=== PATIENT | female | born 1985 | race Caucasian/White ===

== ENCOUNTER → 2021-04-22 08:25 | Outpatient (CLI) | payer BC, SELFPAY ==
--- NOTE | ~2021-04-22 | US_ITS ---
US OB <= 14 weeks fetus DATE: 04/22/2021 08:50 INDICATION: gestational age determination. History of miscarriage. TECHNIQUE: Real-time imaging and Doppler analysis COMPARISON: None FINDINGS: The uterus measures approximately 12 cm vertical dimension, 7.5 cm AP and 8.4 cm transverse dimension. A live oseguera intrauterine gestation is identified with heart rate 163 bpm There is an approximately 6 x 11 mm hypoechoic area subjacent to the gestational sac which may repres ent a small subchorionic hematoma. [place] rump length averages 1.62 cm consistent with 8 weeks +/- 5 days estimated gestational age; MAJO : 12/02/2021. The right ovary appears normal. Left ovary is not visualized. No pelvic free fluid collection is dete cted. IMPRESSION: Small subchorionic hematoma is suggested Estimated gestational age of 8 weeks +/- 5 days; MAJO: 12/02/2021 Reviewed, dictated and finalized at Location A. Reviewed, dictated and finalized at location A.
== END ==
PROVIDERS: Visit Provider Obstetrics & Gynecology Gynecology
DX: O26.21 Pregnancy care for patient with recurrent pregnancy loss, first trimester (principal); Z3A.08 8 weeks gestation of pregnancy
CPT/HCPCS: 76801

== ENCOUNTER → 2021-05-25 15:56 | Outpatient (CLI) | payer BC, SELFPAY ==
--- NOTE | ~2021-05-25 | US_ITS ---
EXAMINATION: US OB <= 14 weeks fetus DATE: 05/25/2021 16:16 INDICATION: Follow-up subchorionic hematoma. Abnormalities of heart rate or rhythm. TECHNIQUE: Real-time pelvic ultrasound utilizing both a transvaginal and transabdominal probe was pe rformed. The interpreting radiologist was not present for the study. COMPARISON: 04/22/2021 FINDINGS: The uterus measures 17.0 x 9.2 x 11.4 cm. There is an intrauterine gestational sac with a single loree ing fetus. The crown rump length measures 6.9 cm, which correlates with an estimated gestational age of 13 weeks and 1 days. heart motion is identified measuring 167 beats per minute (bpm) by M-mo de Doppler. Previously seen subchorionic hematomas no longer visualized. The ovaries are not visualized. There is no free fluid in the pelvis. IMPRESSION: 1. Single living fetus with heart rate of 167 bpm. 2. Resolution of previously seen subchorionic hematoma. 3. [place]-rump length of 6.9 cm concordant with prior estimated gestational age of 12 weeks and 5 days with ultrasound estimated date of delivery (MAJO) based on prior ultrasound of 12/02/2021. Reviewed, dictated and finalized at location B. IMPRESSION: 1. Single living fetus with heart rate of 167 bpm. 2. Resolution of previously seen subchorionic hematoma. 3. [place]-rump length of 6.9 cm concordant with prior estimated gestational age of 12 weeks and 5 days with ultrasound estimated date of delivery (MAJO) based o n prior ultrasound of 12/02/2021.
== END ==
PROVIDERS: Visit Provider Obstetrics & Gynecology
DX: O36.8910 Maternal care for other specified fetal problems, first trimester, not applicable or unspecified (principal); Z3A.12 12 weeks gestation of pregnancy
CPT/HCPCS: 76801

== ENCOUNTER 2021-09-12 16:02 | Outpatient (RCR) | payer BC, SELFPAY ==
[2021-09-12 16:26] LABS: Hematocrit 34.3 % (37.0-47.0); Hemoglobin 12.2 g/dL (12.0-15.0)
[2021-09-12 17:17] LABS: HIV 1/2 Ab P24 Ag Result Negative (Negative)
[2021-09-12 17:26] LABS: Free T4 Free Thyroxine 0.86 ng/mL (0.78-2.19); Vitamin D 25 Hydroxy 53.2 ng/mL
[2021-09-13] MEDS: RHO(D) IMMUNE GLOBULIN 300 MCG/2 ML SYRINGE IM (16:07)
== END 2021-12-11 23:59 | disposition home or self-care (01) ==
LOC: ANHLAB 16:02
PROVIDERS: Visit Provider Nurse Practitioner
DX: Z11.4 Encounter for screening for human immunodeficiency virus [HIV] (principal); Z29.13 Encounter for prophylactic Rho(D) immune globulin; O36.0190 Maternal care for anti-D [Rh] antibodies, unspecified trimester, not applicable or unspecified; Z3A.00 Weeks of gestation of pregnancy not specified
CPT/HCPCS: 36415; 82306; 84439; 84443; 85014; 85018; 85461; 86703; 90384; 96372; G0432; J2790

== ENCOUNTER 2021-11-25 05:15 | Inpatient (IN) | payer BC, SELFPAY ==
[2021-11-25] VITALS (22 sets, daily range): BP systolic 100–148; BP diastolic 63–119; PULSE 49–81; RESP 16–18; TEMP 36.6–37.7; O2SAT 100
--- NOTE | 2021-11-25 05:15 | LDADM ---
This patient, Rita Delgado, was admitted to Labor/Delivery/Recovery 107 on 11/25/21 at 05:15. Plans for labor, pain management and were discussed with patient. Patient/family oriented to hospital policies and general routines including ID bracelet, bed and alarms, visiting hours, pain management, procedures, bathroom and other care routines, personal items, smoking policy, room service/diet and guest tray routines, security routines, and visiting hours. Patient/Family are encouraged to report perceived risks to care and to ask questions if they do not understand what they are told or what they should do. See OBIX for further documentation.
[2021-11-25] MEDS: LACTATED RINGERS 1,000 ML 125 ML IV CONT (06:39)
[2021-11-25] MEDS: AMPICILLIN 2 GM/NS 100 ML 2 GM/100 ML BAG IVPB (06:40)
[2021-11-25] MEDS: OXYTOCIN 30 UNITS/NS 500 ML 30 UNITS/500 ML BAG IV CONT (06:40)
[2021-11-25 06:46] LABS: Basophils Percent Auto 0.4 % (0.2-1.2); Eosinophils Percent Auto 0.2 % (0-4.4); Hemoglobin 13.5 g/dL (12.0-15.0); Immature Granulocyte Absolute 0.07 K/mm3 (0.00-0.031); Immature Granulocyte Percent A 0.7 % (0-0.5); Lymphocytes Absolute Auto 1.55 K/mm3 (0.9-3.2); Lymphocytes Percent Auto 16.1 % (18.3-44.2); Mean Corpuscular HGB Conc 35.5 g/dl (32-36); Mean Corpuscular Volume 95.7 fl (80-100); Mean Platelet Volume 10.8 fl (7.4-10.4); Monocytes Absolute Auto 0.5 K/mm3 (0.1-0.6); Monocytes Percent Auto 5.6 % (2.6-8.5); Neutrophils Absolute Auto 7.4 K/mm3 (1.3-6.7); Platelet Count Result 183 k/mm3 (150-375); Red Blood Count 3.97 M/mm3 (4.2-5.4); Red Cell Distribution Width 12.3 % (11.5-14.5); White Blood Count 9.6 K/mm3 (4.5-10.0)
--- NOTE | 2021-11-25 08:22 | WPDOBADMIT ---
Obstetrics - Admit Note Admission Note: record reviewed. No pertinent additions to the history and/or any subsequent changes in the physical findings that are not consistent with the expected course of the were found. Additions to the history and/or subsequent changes in the physical findings follow. Here for MIL at 39 wks. Cervix 3-4/50/-2 AROM with clear fluid. FHTs reactive. Continue pitocin.
--- NOTE | 2021-11-25 10:56 | P.PCNOB_ITS ---
OB - Delivery Note Procedure Delivery date: 11/25/21 Procedure: Induction method: AROM and Per Pitocin Protocol Delivery monitor: External FHT and External Uterine Route of delivery: Laceration Description: Perineal - 2nd Degree Delivery repair: vicryl (3-0) Specimen: No Quantitative Blood Loss (ml): 150 Anesthesia type: Local Disposition: floor [place] Baby Date of : 11/25/21 Weeks of gestation at delivery: 39 Infant gender: Female Weight (pounds): 8 Weight (ounces): 6 presentation: vertex position: Right Occiput Anterior Placenta delivery description: Spontaneous Cord Vessel Description: 3 Vessels and True Knot score one minute: 9 score five minutes: 9
[2021-11-25] MEDS: OXYTOCIN 30 UNITS/NS 500 ML 30 UNITS/500 ML BAG 125 UNITS IV CONT (10:58)
--- NOTE | 2021-11-25 10:58 | P.DS_ITS ---
DS: Admitting Diagnosis Discharge Date 11/26/21 Admitting Diagnosis MIL at 39 wks DS: Discharge Diagnosis Discharge Diagnosis (1) (normal spontaneous vaginal delivery): Code(s): O80 - Encounter for full-term uncomplicated delivery Status: Acute OB - DS: Summary OB Procedures : Ultrasound OB Procedures Intrapartum: Spontaneous Vag Delivery OB Procedures: : None Peripartum Data Infant Delivery Method: Natural Vaginal Laceration Description: Perineal - 2nd Degree complications: none Status at Discharge Functional status at discharge: independent ambulation Overall status at discharge: patient is progressing back to baseline Time Spent with Patient Time attestation: Total time spent providing and/or coordinating discharge services: DS: Data Data Completed and Pending Labs on day of discharge: Labs from last 24 hours 11/25/21 11/25/21 11/25/21 06:37 06:37 06:37 WBC 9.6 RBC 3.97 L Hgb 13.5 Hct 38.0 MCV 95.7 MCH 34.0 MCHC 35.5 RDW 12.3 Plt Count 183 MPV 10.8 H Immature Gran % (Auto) 0.7 H Neut % (Auto) 77.0 H Lymph % (Auto) 16.1 L [place] % (Auto) 5.6 Eos % (Auto) 0.2 Baso % (Auto) 0.4 Lymph # (Auto) 1.55 [place] # (Auto) 0.5 Eos # (Auto) 0.0 Baso # (Auto) 0.0 Abs Immat Gran (auto) 0.07 H Absolute Neuts (auto) 7.4 H Absolute Nucleated RBC 0.0 Nucleated RBC % 0.0 RPR Pending Blood Type A Negative Antibody Screen Positive Antibody Identification Passive Due to RH Imm Glob Antigen Identification TNP VINOD, IgG Interpret Not Performed VINOD, Poly Interpret Neg VINOD, Complement Interp Not Performed Discharge Plan Discharge Attending physician on discharge: Celia Renee Discharging Clinician: Celia Renee Anticipated Discharge Date/Time: 11/27/21 10:59 Patient Disposition: Home, Self-Care Activity: may shower and pelvic rest Diet: regular Patient Instructions: Antibiotic Form Stand Alone Forms: General Discharge Information Follow-up/Referrals: Celia Renee MD [Physician] - 6 Weeks Discharge Medications: Continued ergocalciferol (vitamin D2) [Vitamin D2] 1,250 mcg (50,000 unit) Capsule 1,250 mcg PO WEEKLY RF: 0 PNV cmb#95-ferrous fumarate-FA [] 28 mg iron- 800 mcg Tablet 1 tablet PO DAILY RF: 0 Date of admission: 11/25/21 05:15 Primary Care Provider: PHYSICIAN,MANAGER STATISTICAL PROGRAMMING Admitting Provider: Celia Renee Attending physician on admission: Celia Renee Condition: Stable
[2021-11-25] MEDS: IBUPROFEN 600 MG TABLET PO ×3 (11:24→23:54)
[2021-11-25] MEDS: BENZOCAINE 20% AER SPR (*SP) 56 GM CAN 1 SPRAY TOPICAL ×2 (11:25→18:15)
[2021-11-25] MEDS: WITCH HAZEL 40 PADS 1 PAD TOPICAL ×2 (11:25→18:15)
--- NOTE | 2021-11-25 13:36 | PC.NURSE ---
Patient transferred to post room #286 per wheelchair. Support person present. Oriented to unit, room, information board, rooming in, admission packet and security measures. Patient verbalizes understanding.
[2021-11-25] MEDS: DOCUSATE SODIUM 100 MG CAPSULE PO (18:16)
[2021-11-26 03:30] VITALS: BP 110/73; PULSE 52; RESP 16; TEMP 36.7; O2SAT 100
[2021-11-26 04:08] LABS: Hematocrit 32.3 % (37.0-47.0); Hemoglobin 11.1 g/dL (12.0-15.0)
[2021-11-26 08:00] VITALS: BP 110/56; PULSE 64; RESP 18; TEMP 36.4
[2021-11-26] MEDS: DOCUSATE SODIUM 100 MG CAPSULE PO (08:34)
[2021-11-26] MEDS: IBUPROFEN 600 MG TABLET PO (08:35)
[2021-11-26] MEDS: MULTIVIT/MIN/PREN/FOL AC/IRON TABLET 1 TAB PO (08:36)
--- NOTE | 2021-11-26 09:55 | PM.OBPNVD ---
OB - PN: Subj Subjective Date/time seen: 11/26/21 09:55 Patient comments: no complaints and pain well controlled baby status: doing well OB - PN: Obj Data Labs CBC & Chem 7: 11/26/21 03:38 Labs: Laboratory Results - last 24 hr 11/26/21 03:38 Hgb 11.1 L Hct 32.3 L OB - PN A/P Plan day: 1 Plan: routine care, discharge home and follow up 6 weeks Time Spent With Patient Time: Total time spent is greater than 50% in coordination of care (as documented) at patient's floor/unit and/or counseling patient: Exam : Bimanual exam- vagina & uterus: other (Uterus firm, nt @U)
--- NOTE | 2021-11-26 10:58 | PC.NURSE ---
Self care and infant care discharge instructions given including follow up visit date and time. No questions or concerns verbalized. Respirations even and unlabored. No distress noted.
[2021-11-27 07:48] VITALS: BP 116/72; PULSE 60; RESP 16; TEMP 36.6; O2SAT 100
[2021-11-27 08:03] LABS: Rapid Plasma Reagin Non-Reactive (NonReactive)
== END 2021-11-26 12:32 | disposition home or self-care (01) | DRG 807 ==
LOC: ANHLDR 10:59 → ANHOB2 14:42
PROVIDERS: Admitting Provider Obstetrics & Gynecology Gynecology; Visit Provider Obstetrics & Gynecology Gynecology
DX: O40.3XX0 Polyhydramnios, third trimester, not applicable or unspecified (principal); Z37.0 Single live birth; Z3A.39 39 weeks gestation of pregnancy; O36.8330 Maternal care for abnormalities of the fetal heart rate or rhythm, third trimester, not applicable or unspecified; O99.824 Streptococcus B carrier state complicating childbirth; O70.1 Second degree perineal laceration during delivery; O69.2XX0 Labor and delivery complicated by other cord entanglement, with compression, not applicable or unspecified
CPT/HCPCS: 36415; 85014; 85018; 85025; 86592; 86850; 86880; 86900; 86901; A9270; J0290; J2590; J7120

== ENCOUNTER 2023-12-20 10:48 | Outpatient (CLI) | payer BC, SELFPAY ==
[2023-12-20 11:48] LABS: Basophils Percent Auto 0.3 % (0.2-1.2); Eosinophils Percent Auto 0.3 % (0-4.4); Hemoglobin 13.5 g/dL (12.0-15.0); Immature Granulocyte Absolute 0.03 K/mm3 (0.00-0.031); Immature Granulocyte Percent A 0.3 % (0-0.5); Lymphocytes Absolute Auto 0.91 K/mm3 (0.9-3.2); Lymphocytes Percent Auto 9.9 % (18.3-44.2); Mean Corpuscular HGB Conc 33.8 g/dl (32-36); Mean Corpuscular Volume 91.7 fl (80-100); Monocytes Absolute Auto 0.4 K/mm3 (0.1-0.6); Neutrophils Absolute Auto 7.8 K/mm3 (1.3-6.7); Neutrophils Percent Auto 85.2 % (45.5-73.1); Platelet Count Result 265 k/mm3 (150-375); Red Blood Count 4.36 M/mm3 (4.2-5.4); Red Cell Distribution Width 12.7 % (11.5-14.5); White Blood Count 9.2 K/mm3 (4.5-10.0)
[2023-12-20 13:59] LABS: Free T4 Free Thyroxine 1.03 ng/mL (0.78-2.19)
== END 2023-12-20 10:49 | disposition home or self-care (01) ==
PROVIDERS: Visit Provider Nurse Practitioner Family
DX: R53.83 Other fatigue (principal)
CPT/HCPCS: 36415; 84439; 84443; 85025

== ENCOUNTER → 2023-12-26 16:23 | Outpatient (CLI) | payer BC, SELFPAY ==
--- NOTE | ~2023-12-26 | XR_ITS ---
EXAMINATION: XR chest 2V 12/26/2023 16:32 INDICATION: Essential hypertension PROCEDURE: 2 view chest COMPARISON: 10/12/2020 FINDINGS: The lungs are clear. The cardiomediastinal silhouette is within normal limits. There are no pleural effusions. There is no pneumothorax suspected. IMPRESSION: 1: NO ACUTE CARDIOPULMONARY DISEASE. Reviewed, dictated and finalized at location L.
== END ==
PROVIDERS: PCP Family Medicine; Visit Provider Family Medicine
DX: I10 Essential (primary) hypertension (principal)
CPT/HCPCS: 71046

== ENCOUNTER 2024-01-10 14:47 | Outpatient (CLI) | payer BC, SELFPAY ==
--- NOTE | 2024-01-10 14:51 | ECHO_ITS ---
Patient Info Name: Rita Delgado Age: 38 years : 1985 Gender: Female Ht: 64 in Wt: 148 lbs BSA: 1.75 m2 HR: 65 bpm BP: 159 / 93 mmHg Heart Rhythm: Sinus Rhythm Technical Quality: Fair Exam Date: 01/10/2024 2:57 PM Exam Location: Echo Lab Patient Status: Outpatient Admit Date: 01/10/2024 Staff Ordering Physician: Bhanu Slaughter MD Dovetailer: Pricila Araiza RDCS Attending Provider: Bhanu Slaughter MD Referring Physician: Kasandra CARDENAS; Exam Type: CA echo doppler color flow Study Info Indications R06.09 - Other forms of dyspnea I10 - Essential (primary) hypertension Complete two-dimensional, color flow and Doppler transthoracic echocardiogram is performed. Summary 1. Complete two-dimensional, color flow and Doppler transthoracic echocardiogram is performed. 2. Left ventricular chamber dimension is normal. 3. Left ventricular systolic function is normal, estimated at 65-70%. 4. The left ventricular diastolic function is normal. 5. E/e' 8 is minimally elevated. 6. There is trace tricuspid valve regurgitation. 7. No pulmonary hypertension, estimated pulmonary arterial systolic pressure is 31 mmHg. Left Ventricle E/e' 8 is minimally elevated. Left ventricular chamber dimension is normal. Left ventricular systolic function is normal, estimated at 65-70%. The left ventricular diastolic function is normal. Right Ventricle Right ventricular systolic function is normal and with normal TAPSE 2.7 cm. Right ventricular chamber dimension is normal. Left Atria Left atrial chamber dimension is normal. Right Atria Right atrial chamber dimension is normal. Aortic Valve The aortic valve is trileaflet. There is no aortic valve stenosis. There is no aortic valve regurgitation. Pulmonic Valve There is no pulmonic regurgitation. Mitral Valve There is no mitral valve stenosis. There is no mitral valve regurgitation. Tricuspid Valve There is trace tricuspid valve regurgitation. No pulmonary hypertension, estimated pulmonary arterial systolic pressure is 31 mmHg. Pericardium/Pleural There is no pericardial effusion. Inferior Vena Cava Normal inferior vena cava with >50% collapse upon inspiration consistent with normal right atrial pressure, 5 mmHg. Aorta The aortic root size at the sinus of Valsalva is normal. Left Ventricular Outflow Tract Name Value Normal LVOT 2D LVOT Diameter 2.0 cm LVOT Doppler LVOT Peak Gradient 6 mmHg LVOT Mean Gradient 3 mmHg LVOT VTI 22 cm LVOT VTI/AV VTI Ratio 0.6 LVOT Stroke Volume 68 ml LVOT CO 3.8 l/min LVOT CI 2.2 l/min/m2 Pulmonic Valve Name Value Normal RVOT Doppler RVOT Peak Gradient 3 mmHg PV Doppler
== END 2024-01-10 14:48 | disposition home or self-care (01) ==
LOC: ANHCARD 14:48
PROVIDERS: PCP Family Medicine; Visit Provider Family Medicine
DX: R06.09 Other forms of dyspnea (principal); I10 Essential (primary) hypertension; R93.1 Abnormal findings on diagnostic imaging of heart and coronary circulation; I07.1 Rheumatic tricuspid insufficiency
CPT/HCPCS: 93306

== ENCOUNTER 2024-01-23 11:52 | Outpatient (CLI) | payer BC, SELFPAY ==
--- NOTE | ~2024-01-23 | US_ITS ---
EXAMINATION: US transvaginal DATE: 01/23/2024 12:12 INDICATION: Pelvic pain Comparison:No prior studies for comparison. TECHNIQUE: Multiple transabdominal and endovaginal sonographic images of the pelvis performed. FINDINGS: The uterus measures 9.1 x 5.1 x 5.7 cm. The endometrial complex measures 5 mm. The right ovary measures 4.5 x 2.1 x 2.5 cm and the left ovary measures 2.6 x 1.5 x 2.1 cm. There ar e small follicles in each ovary. Normal doppler signal in both ovaries. There is no free fluid in the pelvis. There are no abnormal masses seen on either side. IMPRESSION: 1. Unremarkable pelvic ultrasound. Reviewed, dictated and finalized at location B.
== END 2024-01-23 11:53 ==
LOC: MICIMG 11:53
PROVIDERS: PCP Nurse Practitioner; Visit Provider Nurse Practitioner
DX: R10.2 Pelvic and perineal pain (principal)
CPT/HCPCS: 76830

== ENCOUNTER 2025-04-15 08:25 | Outpatient (CLI) | payer BC, SELFPAY ==
--- NOTE | ~2025-04-15 | MM_ITS ---
EXAMINATION: MM screening kaylen BI w zoie HISTORY: Screening TECHNIQUE: Craniocaudal and mediolateral oblique 3-D tomosynthesis images were obtained and synthetic 2-D images were generated. CAD analysis was submitted and interpreted. COMPARISON: 12/15/2018 BREAST PARENCHYMAL COMPOSITION: Dense: The breasts are heterogeneously dense, which may obscure small masses FINDINGS: There is no evidence of suspicious mass, calcification, or architectural distortion to sugg est malignancy in either breast. There has been no suspicious interval change. IMPRESSION: 1. No mammographic evidence of malignancy. 2. Recommend routine screening mammography in one year. BI-RADS Category 1: Negative Reviewed, dictated and finalized at location B.
--- OUTSIDE RECORDS SUMMARY | 2025-04-15 08:28 | XMS_ITS | Encounter Summary ---
Author Organization [facility] Address [address] [place] [address] Care Team Providers Care Tray Delivery Aide Name Role Phone Celia Renee MD Primary Care Provider [phone] [phone] Encounter Details Date Type Department Care Team (Latest Contact Info) Description 02/27/2005 Outpatient Historical HIS [facility] Wilner Feliciano MD NO ADDRESS ON FILE FRACTURE FOLLOW-UP (Primary Dx) Social History Tobacco Use Types Packs/Day Years Used Date Smoking Tobacco: Never Assessed Comments Unknown Sex and Gender Information Value Date Recorded Sex Assigned at Not on file Legal Sex Female 3:44 AM SERVICE MEMBER Gender Identity Not on file Sexual Orientation Not on file documented as of this encounter Plan of Treatment Not on file documented as of this encounter Visit Diagnoses Diagnosis Treatment of healed fracture follow-up examination- Primary documented in this encounter Care Teams Tray Delivery Aide Relationship Specialty Start Date End Date Celia Renee MD [address] [phone] PCP - General Obstetrics and Gynecology 05/31/17 documented as of this encounter
--- OUTSIDE RECORDS SUMMARY | 2025-04-15 08:28 | XMS_ITS | Encounter Summary ---
Author Organization [facility] Address 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
--- OUTSIDE RECORDS SUMMARY | 2025-04-15 08:28 | XMS_ITS | Encounter Summary ---
Author Organization [facility] Address [address] [place] [address] Care Team Providers Care Radar Mechanic Name Role Phone Celia Renee MD Primary Care Provider [phone] Encounter Details Date Type Department Care Team (Late st Contact Info) Description 02/01/2005 Outpatient Historical HIS [facility] Tarun Tavarez MD Wilner Jerome MD NO ADDRESS ON FILE FRACTURE FOLLOW-UP (Primary Dx) Social History Tobacco Use Types Packs/Day Years Used Date Smoking Tobacco: Never Assessed Comments Unknown Sex and Gender Information Value Date Recorded Sex Assigned at Not on file Legal Sex Female 3:44 AM VARITYPIST Gender Identity Not on file Sexual Orientation Not on file documented as of this encounter Plan of Treatment Not on file documented as of this encounter Visit Diagnoses Diagnosis Treatment of healed fracture follow-up examination- Primary documented in this encounter Care Teams Radar Mechanic Relationship Specialty Start Date End Date Celia Renee MD [address] [phone] PCP - General Obstetrics and Gynecology 05/31/17 documented as of this encounter
--- OUTSIDE RECORDS SUMMARY | 2025-04-15 08:28 | XMS_ITS | Encounter Summary ---
Author Organization [facility] Address 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
--- OUTSIDE RECORDS SUMMARY | 2025-04-15 08:28 | XMS_ITS | Clinical Summary ---
Author Organization [facility] Address [address] [place] [address] Phone Care Team Providers Care Stage Hand Name Role Phone Celia Renee MD Primary Care Provider [phone] [phone] Social History Tobacco Use Types Packs/Day Years Used Date Smoking Tobacco: Never Assessed Comments Unknown Sex and Gender Information Value Date Recorded Sex Assigned at Not on file Legal Sex Female 3:44 AM FOOD ADVISER Gender Identity Not on file Sexual Orientation Not on file Plan of Treatment Health Maintenance Due Date Last Done Comments HPV VACCINES (1 - 3-dose series) 2000 DTAP/TDAP/TD VACCINES (1 - Tdap) 2004 HEPATITIS B VACCINES (1 of 3 - 19+ 3-dose series) 09/2004 HPV/Cotest (21-29) 2006 CERVICAL CANCER SCREENING 2015 HPV/Cotest (30-65) 2015 PAP SMEAR 2015 INFLUENZA VACCINE (#1) 2025 Insurance [facility] [employer] Care Teams Stage Hand Relationship Specialty Start Date End Date Celia Renee MD [address] [phone] PCP - General Obstetrics and Gynecology 05/31/17
--- OUTSIDE RECORDS SUMMARY | 2025-04-15 08:28 | XMS_ITS | Encounter Summary ---
Author Organization [facility] Address [address] [place] [address] Care Team Providers Care Nutrition Coordinator Name Role Phone Celia Renee MD Primary Care Provider [phone] [phone] Encounter Details Date Type Department Care Team (Latest Contact Info) Description 12/04/2004 Outpatient Historical HIS [facility] Wilner Feliciano MD NO ADDRESS ON FILE FX C1 VERTEBRA-CLOSED ([facility]) (Primary Dx) Social History Tobacco Use Types Packs/Day Years Used Date Smoking Tobacco: Never Assessed Comments Unknown Sex and Gender Information Value Date Recorded Sex Assigned at Not on file Legal Sex Female 3:44 AM ORIENTAL RUG REPAIRER Gender Identity Not on file Sexual Orientation Not on file documented as of this encounter Plan of Treatment Not on file documented as of this encounter Visit Diagnoses Diagnosis Closed fracture of first cervical vertebra without mention of spinal cord injury (CMS/[facility])- Primary Closed fracture of first cervical vertebra without mention of spinal cord injury documented in this encounter Care Teams Nutrition Coordinator Relationship Specialty Start Date End Date Celia Renee MD [address] [phone] PCP - General Obstetrics and Gynecology 05/31/17 documented as of this encounter
--- OUTSIDE RECORDS SUMMARY | 2025-04-15 08:28 | XMS_ITS | Encounter Summary ---
Author Organization [facility] Address [address] [place] [address] Care Team Providers Care Loading Machine Operator Helper Name Role Phone Celia Renee MD Primary Care Provider [phone] [phone] Encounter Details Date Type Department Care Team (Latest Contact Info) Description 01/22/2005 Outpatient Historical HIS [facility] Wilner Feliciano MD NO ADDRESS ON FILE FRACTURE FOLLOW-UP (Primary Dx) Social History Tobacco Use Types Packs/Day Years Used Date Smoking Tobacco: Never Assessed Comments Unknown Sex and Gender Information Value Date Recorded Sex Assigned at Not on file Legal Sex Female 3:44 AM LACING CUTTER Gender Identity Not on file Sexual Orientation Not on file documented as of this encounter Plan of Treatment Not on file documented as of this encounter Visit Diagnoses Diagnosis Treatment of healed fracture follow-up examination- Primary documented in this encounter Care Teams Loading Machine Operator Helper Relationship Specialty Start Date End Date Celia Renee MD [address] [phone] PCP - General Obstetrics and Gynecology 05/31/17 documented as of this encounter
--- OUTSIDE RECORDS SUMMARY | 2025-04-15 08:28 | XMS_ITS | Encounter Summary ---
Author Organization [facility] Address [address] [place] [address] Care Team Providers Care Auto Body Repairer Name Role Phone Celia Renee MD Primary Care Provider [phone] [phone] Encounter Details Date Type Department Care Team (Latest Contact Info) Description 11/04/2004 Inpatient Historical HIS PATIENT IN A BED Wilner Jerome MD NO ADDRESS ON FILE FX C2 VERTEBRA-CLOSED ([facility]) (Primary Dx) Social History Tobacco Use Types Packs/Day Years Used Date Smoking Tobacco: Never Assessed Comments Unknown Sex and Gender Information Value Date Recorded Sex Assigned at Not on file Legal Sex Female 3:44 AM ECHO VASCULAR TECH Gender Identity Not on file Sexual Orientation Not on file documented as of this encounter Plan of Treatment Not on file documented as of this encounter Visit Diagnoses Diagnosis Closed fracture of second cervical vertebra without mention of spinal cord injury (CMS/[facility])- Primary Closed fracture of second cervical vertebra without mention of spinal cord injury documented in this encounter Care Teams Auto Body Repairer Relationship Specialty Start Date End Date Celia Renee MD [address] [phone] PCP - General Obstetrics and Gynecology 05/31/17 documented as of this encounter
--- OUTSIDE RECORDS SUMMARY | 2025-04-15 08:28 | XMS_ITS | Encounter Summary ---
Author Organization [facility] Address [address] [place] [address] Care Team Providers Care Global Safety Officer Name Role Phone Celia Renee MD Primary Care Provider +1 [phone] Encounter Details Date Type Department Care Team (Latest Contact Info) Description 12/25/[address] [facility] Wilner Feliciano MD NO ADDRESS ON FILE FX C2 VERTEBRA-CLOSED ([facility]) (Primary Dx) Social History Tobacco Use Types Packs/Day Years Used Date Smoking Tobacco: Never Assessed Comments Unknown Sex and Gender Information Value Date Recorded Sex Assigned at Not on file Legal Sex Female 3:44 AM BABY COUNSELOR Gender Identity Not on file Sexual Orientation Not on file documented as of this encounter Plan of Treatment Not on file documented as of this encounter Visit Diagnoses Diagnosis Closed fracture of second cervical vertebra without mention of spinal cord injury ([facility])- Primary Closed fracture of second cervical vertebra without mention of spinal cord injury documented in this encounter Care Teams Global Safety Officer Relationship Specialty Start Date End Date Celia Renee MD [address] [phone] PCP - General Obstetrics and Gynecology 05/31/17 documented as of this encounter
== END 2025-04-15 08:26 | disposition home or self-care (01) ==
LOC: ANHIMG 08:26
PROVIDERS: PCP Nurse Practitioner; Visit Provider Nurse Practitioner
DX: Z12.31 Encounter for screening mammogram for malignant neoplasm of breast (principal)
CPT/HCPCS: 77063; 77067

== ENCOUNTER → 2025-07-05 12:16 | Outpatient (CLI) | payer BC, SELFPAY ==
--- NOTE | ~2025-07-05 | XR_ITS ---
EXAMINATION: XR ankle RT min 3V, 07/05/2025 12:18 CDT HISTORY: persistent pain right lateral ankle COMPARISON: No comparisons available. Findings: No acute fracture or malalignment. No significant degenerative changes. Soft tissues unremarkable. Impression: No acute fracture or malalignment. Reviewed, dictated and finalized at location P. Impression: No acute fracture or malalignment.
--- OUTSIDE RECORDS SUMMARY | 2025-07-05 13:18 | XMS_ITS | Encounter Summary ---
Author Organization [facility] Address 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
--- OUTSIDE RECORDS SUMMARY | 2025-07-05 13:18 | XMS_ITS | Encounter Summary ---
Author Organization [facility] Address 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
--- OUTSIDE RECORDS SUMMARY | 2025-07-05 13:18 | XMS_ITS | Encounter Summary ---
Author Organization [facility] Address 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
--- OUTSIDE RECORDS SUMMARY | 2025-07-05 13:18 | XMS_ITS | Encounter Summary ---
Author Organization [facility] [place] [facility] Address 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
--- OUTSIDE RECORDS SUMMARY | 2025-07-05 13:18 | XMS_ITS | Encounter Summary ---
Author Organization [employer] Address 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
--- OUTSIDE RECORDS SUMMARY | 2025-07-05 13:18 | XMS_ITS | Encounter Summary ---
Author Organization [employer] Address 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
--- OUTSIDE RECORDS SUMMARY | 2025-07-05 13:18 | XMS_ITS | Encounter Summary ---
Author Organization [facility] Address 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
--- OUTSIDE RECORDS SUMMARY | 2025-07-05 13:18 | XMS_ITS | Encounter Summary ---
Author Organization [facility] Address [address] [place] [address] Care Team Providers Care Director Of Physical Therapy Name Role Phone Celia Renee MD Primary Care Provider [phone] [phone] Encounter Details Date Type Department Care Team (Latest Contact Info) Description 03/28/2005 Outpatient Historical HIS 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
--- OUTSIDE RECORDS SUMMARY | 2025-07-05 13:18 | XMS_ITS | Clinical Summary ---
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 Gender Identity Not on file Sexual Orientation Not on file Plan of Treatment Health Maintenance Due Date Last Done Comments DTAP/TDAP/TD VACCINES (1 - Tdap) 2004 HEPATITIS B VACCINES (1 of 3 - 19+ 3-dose series) 09/2004 HPV/Cotest (21-29) 2006 HPV VACCINES (1 - 3-dose SCDM series) 2012 CERVICAL CANCER SCREENING 2015 HPV/Cotest (30-65) 2015 PAP SMEAR 2015 INFLUENZA VACCINE (#1) 2025 Insurance [facility] Care Teams Youth Services Specialist Relationship Specialty Start Date End Date Celia Renee MD [address] [phone] PCP - General Obstetrics and Gynecology 05/31/17
== END ==
LOC: EXPTRAD 12:18
PROVIDERS: PCP Family Medicine; Visit Provider Family Medicine
DX: M25.571 Pain in right ankle and joints of right foot (principal)
CPT/HCPCS: 73610